=== PATIENT | female | born 1965 | race Caucasian/White ===

== ENCOUNTER 2024-08-01 16:40 | Emergency (ER) | payer OTHER, SELFPAY ==
[2024-08-01 16:42] VITALS: BP 104/63
[2024-08-01 17:00] VITALS: BP 142/79
[2024-08-01] MEDS: NSS 1000 IV (17:49)
[2024-08-01 18:00] VITALS: BP 181/76
[2024-08-01 18:10] LABS: % Basophils 0.3 % (0-2); % Eosinophils 2.1 % (0-6); % Immature Granulocytes 0.9 % (0-0.5); % Lymphocytes 20.4 % (20.5-51.1); % Monocytes 7.1 % (1.7-9.3); % Neutrophils 69.2 % (42.2-75.2); Absolute Eosinophils 0.2 10^3/uL (0-0.7); Absolute Immature Granulocytes 0.1 10^3/uL (0-0.05); Absolute Monocytes 0.7 10^3/uL (0.1-0.6); Absolute Neutrophils 6.8 10^3/uL (1.4-6.5); Hematocrit 41.5 % (37.0-47.0); Hemoglobin 13.6 g/dL (12.0-16.0); Mean Corp Hgb Conc. 32.8 g/dL (33.0-37.0); Mean Corpuscular Hgb 29.2 pg (27.0-31.0); Mean Corpuscular Volume 89.2 fL (81.0-99.0); Mean Platelet Volume 10.6 fL (7.4-10.4); Nucleated Red Blood Cells % 0 %; Platelet Count 212 10^3/uL (130-400); Red Blood Cell Count 4.65 10^6/uL (4.20-5.40); Red Cell Dist. Width 13.1 % (11.5-14.5); White Blood Cell Count 9.9 10^3/uL (4.8-10.8)
[2024-08-01 18:11] LABS: ALT (SGPT) 21 U/L (0-35); AST (SGOT) 21 U/L (14-36); Alkaline Phosphatase 77 U/L (38-126); Blood Urea Nitrogen 18 mg/dl (7-17); Calcium 9.1 mg/dl (8.4-10.2); Carbon Dioxide 28 mmol/L (22-30); Chloride 104 mmol/L (98-107); Glucose 224 mg/dl (70-99); Lipase 169 U/L (23-300); Sodium 141 mmol/L (135-145); Total Bilirubin 0.6 mg/dl (0.2-1.3); Total Protein 6.5 g/dl (6.3-8.2); eGFR > 60.00
[2024-08-01 20:19] LABS: Urine Albumin 1+ (Neg - Trace); Urine Bilirubin Negative (Negative); Urine Character Slightly Cloudy (Clear); Urine Color Yellow; Urine Glucose 2+ (Negative); Urine Ketone Negative (Negative); Urine Leukocyte Negative (Negative); Urine Nitrite Positive (Negative); Urine Occult Blood Negative (Negative); Urine Specific Gravity 1.025 (<1.030); Urine Urobilinogen Negative (Neg - 1+)
[2024-08-01 20:44] LABS: Urine Bacteria Many (Negative); Urine Red Blood Cell 0-2 /HPF (0-2)
[2024-08-01] MEDS: MACROBID 100 MG PO (21:19)
--- NOTE | 2024-08-01 23:06 | ED.GENMED ---
History of Present Illness
General
Chief Complaint: Abdominal Symptoms
Source: patient
Exam Limitations: none
Time Seen by Provider: 08/01/24 17:02
Nursing documentation reviewed up to this point in time: agreed with
History of Present Illness
History of Present Illness:
Patient to ED with report of weakness, n/v/d while at work this afternoon. Denies fever/chllls. EMS called by coworker. Patient noted to have low BP. IVF started at scene. Reports her symptoms have resolved and she is feeling much better since
receiving fluids. No other complaints
Past History
Past History
ED Past Medical History: NIDDM
ED Past Surgical History: Negative Cardiac
Social History
Tobacco: Non-smoker
Alcohol: None
Drug: None
Personal:
Living: with family
Employment: Employed
Family History
Family History: Hypertension
Review of Systems
Review of Systems
Allergies reviewed?: Yes
All Other Systems: ROS reviewed and negative except as documented in HPI and ROS
Constitutional: Reports no symptoms
EENT: Reports no symptoms
Respiratory: Reports no symptoms
Cardiac: Reports no symptoms
ABD/GI: Reports nausea, vomiting and diarrhea
: Reports no symptoms
Musculoskeletal: Reports no symptoms
Skin: Reports no symptoms
Neurological: Reports no symptoms
Psychiatric: Reports no symptoms
Phy Exam
General Physical Exam
General Presentation: well appearing and no apparent distress
General age: appears stated age
General Skin: warm and dry
General Habitus: normal
Cardiovascular Exam
Cardiovascular Exam: regular rate/rhythm and no edema
Pulmonary Exam
Pulmonary Exam: lungs clear and no respiratory distress
Gastrointestinal Exam
Gastrointestinal Exam: normal bowel sounds, non tender, soft, no organomegaly and no cva tenderness
Musculoskeletal Exam
Musculoskeletal Exam: full ROM and neuro vasc intact
Skin Exam
Skin Exam: normal color, warm/dry and no rash
Psychiatric Exam
Psychiatric Exam: normal mood/affect
Course
Orders/Labs/Results
Orders:
Orders
08/01/24 17:44
0.9% Sodium Chloride 1000 ml [Nss] 1,000 ml IV BOLUS
08/01/24 17:49
Complete Blood Count/With Diff Urgent
Comprehensive Metabolic Panel Urgent
Lipase Urgent
Urinalysis Reflex To Culture Urgent
Date Specimen was Collected: 08/01/24
Time Specimen was Collected: 17:48
Urine Microscopic Reflex Cult Urgent
Urine Culture Urgent
NATALIE Source: U
Specimen Description:
Date Specimen was Collected: 08/01/24
Time Specimen was Collected: 17:48
08/01/24 21:12
Nitrofurantoin Monohydrate [Macrobid] 100 mg PO NOW STA
Abnormal Lab Results
08/01/24
17:49
MCHC 32.8 L g/dL
(33.0-37.0)
MPV 10.6 H fL
(7.4-10.4)
Abs Immat Gran (auto) 0.1 H 10^3/uL
(0-0.05)
Absolute Neuts (auto) 6.8 H 10^3/uL
(1.4-6.5)
Absolute Monos (auto) 0.7 H 10^3/uL
(0.1-0.6)
Immature Gran % 0.9 H %
(0-0.5)
Lymphocytes % 20.4 L %
(20.5-51.1)
BUN 18 H mg/dl
(7-17)
Glucose 224 H mg/dl
(70-99)
Urine Nitrite (Reflex) Positive A
(Negative)
Urine Bacteria (Reflex) Many A
(Negative)
Urine Glucose 2+ A
(Negative)
Urine Albumin (Reflex) 1+ A
(Neg - Trace)
08/01/24 17:49
08/01/24 17:49
Vital Signs
Initial and Last Documented VS:
Initial Vital Signs
Temp Pulse Resp BP Pulse Ox
97.8 F 82 18 104/63 94
08/01/24 16:42 08/01/24 16:42 08/01/24 16:42 08/01/24 16:42 08/01/24 16:42
Last Documented Vital Signs
Temp Pulse Resp BP Pulse Ox
97.8 F 91 22 181/76 97
08/01/24 16:42 08/01/24 17:15 08/01/24 17:15 08/01/24 18:00 08/01/24 19:15
*Critical Care Note
Total Time (30-74mins, 75-104mins- exclusive of procedures): Not Applicable
Update Note
Update Note:
Patient to ED for report of N/V/D this afternoon. No further episodes in ED. Improved with IVF. Labs reviewed. Urine +for nitrates. Many bacteria Started on macrobid, culture results pending. SHe is discharged home and will follow up with PCP
in AM Given instructions on s/s to return to ED and she is agreeable to plan.
ED Attending Note
-
Portions of this chart may have been created with voice recognition software.� Occasional wrong word or��sound alike� substitutions may have occurred due to the inherent limitations of voice recognition software.
Discharge Plan
Departure
Patient Disposition: Home (Routine Discharge)
Date of Disposition: 08/01/24
Time of Disposition: 21:13
Patient with high blood pressure during this ER visit?: No
Condition: Good
Covid-19: Not Applicable
Discharge Problem:
UTI (urinary tract infection)
Instructions: Urinary tract infections in adults, Diarrhea in teens and adults, Nausea and Vomiting, Adult (DC)
Prescriptions:
New
nitrofurantoin monohyd/m-cryst [Macrobid] 100 mg capsule
100 mg PO Q12H 5 Days Qty: 10 0RF
No Action
Diovan
1 PO DAILY
Glyburide
1 PO DAILY
Januvia
1 PO DAILY
alprazolam [Xanax] 0.5 MG tablet
0.5 mg PO Q6HPRN PRN (Reason: anxiety) Qty: 7 0RF
Referrals:
UNKNOWN,NO INTERVIEW [Family Provider] -
Activity Restrictions/Additional Instructions:
Follow up with your family doctor.
Interventions
Interventions:
*General Assessment Last Done: 08/01/24 16:42
ED- Fall Risk Assessment Last Done: 08/01/24 17:59
*Nursing Disposition Last Done: 08/01/24 21:26
NV-Zzeulr-Jqjwknjxzy Assessment Last Done: 08/01/24 17:59
Discharge Date and Time
Discharge Date/Time: 08/01/24 21:37
Print Language: AUSTRALIAN
== END 2024-08-01 21:37 | disposition home or self-care (01) ==
LOC: EMR 16:40
PROVIDERS: Nurse Practitioner; EMERGENCY PHYSICIAN Emergency Medicine
DX: N39.0 Urinary tract infection, site not specified (principal); I95.9 Hypotension, unspecified; E11.9 Type 2 diabetes mellitus without complications; Z82.49 Family history of ischemic heart disease and other diseases of the circulatory system
CPT/HCPCS: 99283; 96360; 80053; 81003; 81015; 83690; 85025; 87077; 87086